=== PATIENT | male | born 1955 | race Two or more races ===

== ENCOUNTER → 2018-09-06 | Outpatient (CLI) | payer BC, OTHER | END | disposition home or self-care (01) | LOC: ROC 08-16 13:15 | PROVIDERS: ATTEND Radiology Radiation Oncology | DX: C61 Malignant neoplasm of prostate (principal); K21.9 Gastro-esophageal reflux disease without esophagitis; E78.5 Hyperlipidemia, unspecified; I10 Essential (primary) hypertension; Z88.8 Allergy status to other drugs, medicaments and biological substances | CPT/HCPCS: 99215; G0463 ==

== ENCOUNTER → 2018-09-25 | Outpatient (CLI) | payer BC, OTHER ==
[~2018-09-25] MED LIST: FENTANYL PF 100 MCG/2ML IVPush ONE; LIDOCAINE 1%, 10ML SQ ONE; LIDOCAINE 1%, 20ML SQ ONE; MIDAZOLAM 1 MG/ML, 5ML IVPush ONE
== END | disposition home or self-care (01) ==
LOC: ROC 07:22
PROVIDERS: ATTEND Radiology Radiation Oncology
DX: C61 Malignant neoplasm of prostate (principal); I10 Essential (primary) hypertension
CPT/HCPCS: 55876; 76942; 77332; 99156; A4648; J2250; J3010; J3490

== ENCOUNTER → 2018-10-01 | Outpatient (CLI) | payer BC, OTHER | END | disposition home or self-care (01) | LOC: CFH 12:27 | PROVIDERS: ATTEND Radiology Radiation Oncology | DX: N40.0 Benign prostatic hyperplasia without lower urinary tract symptoms (principal); I10 Essential (primary) hypertension | CPT/HCPCS: 72195 ==

== ENCOUNTER → 2018-12-31 | Outpatient (CLI) | payer BC, OTHER | END | disposition home or self-care (01) | LOC: ROC 08:22 | PROVIDERS: ATTEND Radiology Radiation Oncology | DX: Z08 Encounter for follow-up examination after completed treatment for malignant neoplasm (principal); C61 Malignant neoplasm of prostate | CPT/HCPCS: 99212; G0463 ==

== ENCOUNTER 2019-07-01 07:54 | Outpatient (CLI) | payer BC, OTHER | END 2019-07-01 23:59 | disposition home or self-care (01) | LOC: ROC 07:54 | PROVIDERS: ATTEND Radiology Radiation Oncology | DX: C61 Malignant neoplasm of prostate (principal) | CPT/HCPCS: 99212; G0463 ==

== ENCOUNTER → 2020-01-13 | Outpatient (CLI) | payer BC, OTHER | END | disposition home or self-care (01) | LOC: ROC 08:27 | PROVIDERS: ATTEND Radiology Radiation Oncology | DX: C61 Malignant neoplasm of prostate (principal); Z88.6 Allergy status to analgesic agent | CPT/HCPCS: 99212; G0463 ==

== ENCOUNTER → 2020-10-05 | Outpatient (CLI) | payer BC, OTHER | END | disposition home or self-care (01) | LOC: ROC 10:25 | PROVIDERS: ATTEND Radiology Radiation Oncology | DX: Z08 Encounter for follow-up examination after completed treatment for malignant neoplasm (principal); Z85.46 Personal history of malignant neoplasm of prostate | CPT/HCPCS: 99212; G0463 ==